=== PATIENT | female | born 1995 | race Caucasian/White ===

== ENCOUNTER 2022-07-30 08:09 | Inpatient (IN) ==
[2022-07-30] MEDS ORDERED: OXYTOCIN 30 UNITS/500 ML BAG IV PRN ×3 (09:29→18:19)
[2022-07-30] MEDS ORDERED: LIDOCAINE 1% LOCAL 20 ML VIAL INFIL PRN (09:29)
--- NOTE | 2022-07-30 09:36 | History & Physical Report ---
Date of Service July 30, 2022 Assessment & Plan (1) 38 weeks gestation of : (2) SROM (spontaneous rupture of membranes): Plan admit, iv, labs. plan pitocin augmentation. fhts categ 1. History of Present Illness Chief Complaint: leaking fluid since 6am clear Primary Care Provider: NO PCP 26yo at 38+wks ega presents to L&D with above cc. Having few contractions not painful. Clear fluid leak since 6am. +FM. PNC uncomplicated. PNL rh pos, ri, gbs neg OBH: g1 GYNH: nl paps, no stds Allergies Allergy/AdvReac Type Severity Reaction Status Date / Time No Known Allergies Allergy Verified 07/30/22 09:04 Home Medications Medication Instructions Recorded Confirmed Type prenat.vits,berto,qvh-lyau-qqyre 1 tab PO DAILY 12/26/21 07/30/22 History Patient History Medical History (Updated 07/30/22 @ 09:35 by Tali Campuzano MD, FACOG) Encounter for IUD insertion Encounter for routine gynecological examination Surgical History No pertinent past surgical history Family History Sister Diabetes Dyslipidemia Aunt Breast cancer Maternal great aunt Denies family history of Ovarian cancer Colorectal cancer Social History Smoking Status: Never smoker Hx Alcohol Use: No Hx Substance Use: No Preferred Language: [place] 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 current occupational status: employed current occupation: self employed. Other Information That Helps Us Care for You: No Feels Safe at Home: Yes Safety Concerns: Feels Safe At This Time Assistive Devices: None Review of Systems as per Subjective / HPI Physical Exam Constitutional: WD/WN, vitals as above Respiratory: normal respiratory effort, lungs clear to auscultation Cardiovascular: Rate/Rhythm: regular rate and regular rhythm Gastrointestinal (Abdomen): soft gravid nt efw 7-8# Musculoskeletal: no edema nontender calves Neurologic: grossly normal Psychiatric: A+Ox3, euthymic affect Genitourinary: OB Exam Abdomen: + vertex Manual OB Exam: + cervical dilation 3 cm, + cervical effacement 90% and + station -2 OB Exam Monitor Tracing: + external FHT monitor used, + external uterine monitor used (q3), + category I and + normal FHT variability Results & Data ([facility]) Vital Signs (Past 12 Hours) Vital Signs Temp Pulse Resp BP 07/30/22 08:38 98.1 F 20 07/30/22 09:07 101 H 07/30/22 09:07 128/83 07/30/22 08:29 116 H 158/89 H Coding Level of Care Code None Diagnoses 38 weeks gestation of Z3A.38 SROM (spontaneous rupture of membranes)
[2022-07-30 10:04] LABS: Hematocrit (blood only) 36.5 % (34.1-44.9); Hemoglobin 12.8 g/dl (12.0-16.0); Mean Corpuscular Hemoglobin 30.5 pg (25.0-34.0); Mean Corpuscular Hgb Conc 35.1 g/dL (32.0-36.0); Mean Corpuscular Volume 87.1 fL (80.0-100.0); Mean Platelet Volume 10.6 fL (9.4-12.3); Platelet Count 209 K/uL (130-400); RDW Coefficient of Variation 13.9 % (11.5-14.5); RDW Standard Deviation 43.6 fL (36.4-46.3); Red Blood Count 4.19 M/uL (3.93-5.22); White Blood Count 14.28 K/ul (4.8-10.8)
[2022-07-30] MEDS: LACTATED RINGER'S 1,000 ML IV PRN ×2 (10:54→12:34)
[2022-07-30] MEDS ORDERED: fentaNYL citrate 100 MCG/2 ML VIAL ONE (11:43)
[2022-07-30] MEDS ORDERED: SODIUM CHLORIDE 0.9% INJ 10 ML VIAL ONE (11:43)
[2022-07-30] MEDS ORDERED: ePHEDrine sulfate 50 MG/ML AMP ONE (11:43)
[2022-07-30] MEDS ORDERED: fentaNYL 2MCG/ML ROPIVACAINE 1.25MG/ML 100 ML BAG EPI ONE (11:44)
[2022-07-30] MEDS ORDERED: BUPIVACAINE 0.25% 30 ML VIAL ONE (11:44)
[2022-07-30] MEDS ORDERED: LIDOCAINE 2%/EPINEPHRINE 1:200,000 20 ML SDV ONE (11:44)
[2022-07-30] MEDS ORDERED: NALBUPHINE HCL INJ 10 MG/ML AMP IV PRN (12:00)
[2022-07-30] MEDS ORDERED: NALOXONE HCL 1 MG in SODIUM CHLORIDE 0.9% 1000ML 1,000 ML IV PRN (12:00)
[2022-07-30] MEDS ORDERED: ONDANSETRON INJ 2 MG/ML 2 ML VIAL IV PRN (12:00)
[2022-07-30] MEDS ORDERED: diphenhydrAMINE 50 MG/ML VIAL IV PRN (12:00)
[2022-07-30] MEDS ORDERED: fentaNYL 2MCG/ML ROPIVACAINE 1.25MG/ML 100 ML BAG EPI PRN (12:00)
[2022-07-30] MEDS ORDERED: NALOXONE HCL 0.4 MG/1 ML VIAL/CARP IV PRN (12:00)
[2022-07-30] MEDS ORDERED: ePHEDrine sulfate 50 MG/ML AMP IV PRN (12:00)
--- NOTE | 2022-07-30 12:00 | Anesthesiology Consultation ---
Date of Service July 30, 2022 Assessment & Plan ASA ASA2 Proposed Anesthesia Anesthesia Type: Labor Epidural Risk / Benefits Reviewed With: PT / POA / Parent / Guardian, Accepts Plan and Informed Consent Obtained History Height/Weight Height: 5 ft 6 in Weight: 81.647 kg Allergies Allergy/AdvReac Type Severity Reaction Status Date / Time No Known Allergies Allergy Verified 07/30/22 09:04 Medications Home Medications Medication Instructions Recorded Confirmed Last Taken prenat.vits,berto,edm-hytb-rqiow 1 tab PO DAILY 12/26/21 07/30/22 07/29/22 08:00 Active Medications Generic Name Dose Route Start Last Admin Trade Name Freq PRN Reason Stop Dose Admin Oxytocin 30 units in 500 mls @ 3 mls/hr 07/30/22 09:29 07/30/22 11:30 Pitocin IV 08/01/22 09:28 0.18 units/hr .Q24H PRN 3 mls/hr Labor Induction/Augmentation Titration Protocol 0.18 UNITS/HR Lactated Ringer's 1,000 mls @ 125 mls/hr 07/30/22 09:29 07/30/22 10:54 Lr IV 08/01/22 09:28 125 mls/hr .Q8H PRN Administration L&D Protocol Protocol Past Medical History Medical History Encounter for IUD insertion Encounter for routine gynecological examination Exercise / Class Metabolic Activity II 4-5 Yardwork/Stairs/Walk up hill Past Family History Family History Sister Diabetes Dyslipidemia Aunt Breast cancer Maternal great aunt Denies family history of Ovarian cancer Colorectal cancer Past Surgical History Surgical History No pertinent past surgical history Past Anesthesia History No Hx of Anesthesia Complications and No Family Hx of Anesthesia Complications History of PONV No Hx of PONV and No Hx of Motion Sickness Social History Smoking Status: Never smoker Hx Alcohol Use: No Hx Substance Use: No Review of Systems denies fever/cough/ colds/ chest pain/ SOB/ DENY denies DENY Physical Exam Vital Signs Last Vital Signs Temp 36.7 C 07/30/22 08:38 Pulse 83 07/30/22 12:20 Resp 20 07/30/22 08:38 BP 102/57 L 07/30/22 12:20 Pulse Ox 100 07/30/22 12:20 ENMT Mouth: no TMJ abnormality and no dentition abnormality Thyromental Distance: > or= 3.5 Finger Breadths Mallampati Class: II Neck neck extension not limited Respiratory normal respiratory effort; no respiratory distress Auscultation: lungs clear to auscultation bilaterally Cardiovascular Rate/Rhythm: regular rate and regular rhythm Neurologic moves all extremities Psychiatric Orientation: alert and oriented x 3 Testing Laboratory Results 07/30/22 09:48
--- NOTE | 2022-07-30 15:19 | Labor Progress Brief Note ---
Date of Service July 30, 2022 Subjective feeling pressure Assessment & Plan (1) 38 weeks gestation of : (2) SROM (spontaneous rupture of membranes): Plan good progress, will drain bladder and begin 2nd stage soon. fhts categ 2, occas variable Admission and Anticipated Discharge Date Admission Date: July 30, 2022 Physical Exam Constitutional: WD/WN, vitals as above Genitourinary: Manual OB Exam: + cervical dilation (small ant lip), + cervical effacement 100% and + station + 1 OB Exam Monitor Tracing: + external FHT monitor used, + external uterine monitor used (q2), + category II (occas variables) and + normal FHT variability Results & Data ([facility]) Vital Signs (Past 12 Hours) Vital Signs Temp Pulse Resp BP Pulse Ox 07/30/22 12:30 98.2 F 20 07/30/22 10:30 97.7 F 20 07/30/22 08:38 98.1 F 20 07/30/22 15:15 98 07/30/22 15:15 118 H 07/30/22 15:12 100 H 07/30/22 15:12 134/70 07/30/22 15:10 100 07/30/22 15:10 106 H 07/30/22 15:05 100 07/30/22 15:05 92 H 07/30/22 15:00 99 07/30/22 15:00 95 H 07/30/22 14:55 100 07/30/22 14:55 97 H 07/30/22 14:50 100 07/30/22 14:50 102 H 07/30/22 14:48 94 07/30/22 14:48 108 H 07/30/22 14:48 108 H 07/30/22 14:48 125/70 07/30/22 14:45 100 07/30/22 14:45 98 H 07/30/22 14:41 90 07/30/22 14:41 95 H 07/30/22 14:40 100 07/30/22 14:40 91 H 07/30/22 14:35 94 07/30/22 14:35 91 H 07/30/22 14:30 100 07/30/22 14:30 92 H 07/30/22 14:28 96 H 07/30/22 14:28 139/83 07/30/22 14:26 93 07/30/22 14:26 99 H 07/30/22 14:25 100 07/30/22 14:25 88 07/30/22 14:20 100 07/30/22 14:20 82 07/30/22 14:15 100 07/30/22 14:15 101 H 07/30/22 14:12 111 H 07/30/22 14:12 125/75 07/30/22 14:10 100 07/30/22 14:10 99 H 07/30/22 14:05 100 07/30/22 14:05 106 H 07/30/22 14:00 95 07/30/22 14:00 92 H 07/30/22 13:58 92 07/30/22 13:58 86 07/30/22 13:58 122/72 07/30/22 13:55 100 07/30/22 13:55 95 H 07/30/22 13:50 100 07/30/22 13:50 100 H 07/30/22 13:44 89 L 07/30/22 13:45 95 07/30/22 13:44 92 H 07/30/22 13:45 87 07/30/22 13:42 95 H 07/30/22 13:42 115/68 07/30/22 13:40 100 07/30/22 13:40 90 07/30/22 13:35 20 07/30/22 13:35 20 07/30/22 12:20 20 07/30/22 12:20 20 07/30/22 12:35 20 07/30/22 12:35 20 07/30/22 12:50 20 07/30/22 12:50 20 07/30/22 13:05 20 07/30/22 13:05 20 07/30/22 13:20 20 07/30/22 13:20 20 07/30/22 13:35 97 07/30/22 13:35 94 H 07/30/22 13:30 98 07/30/22 13:30 90 07/30/22 13:27 93 H 07/30/22 13:27 120/68 07/30/22 13:25 97 07/30/22 13:25 87 07/30/22 13:22 94 07/30/22 13:22 98 H 07/30/22 13:20 97 07/30/22 13:20 91 H 07/30/22 13:15 93 07/30/22 13:15 91 H 07/30/22 13:15 95 07/30/22 13:15 91 H 07/30/22 13:12 88 07/30/22 13:12 126/71 07/30/22 13:10 91 07/30/22 13:10 102 H 07/30/22 13:08 93 07/30/22 13:08 101 H 07/30/22 13:07 94 H 07/30/22 13:07 122/81 07/30/22 13:05 99 07/30/22 13:05 86 07/30/22 13:01 108 H 07/30/22 13:01 121/73 07/30/22 13:00 96 07/30/22 13:00 94 H 07/30/22 12:57 104 H 07/30/22 12:57 118/69 07/30/22 12:55 100 07/30/22 12:55 90 07/30/22 12:52 85 07/30/22 12:52 121/76 07/30/22 12:50 100 07/30/22 12:50 96 H 07/30/22 12:47 89 L 07/30/22 12:47 84 07/30/22 12:46 101 H 07/30/22 12:46 108/63 07/30/22 12:45 99 07/30/22 12:45 98 H 07/30/22 12:41 103 H 07/30/22 12:41 109/64 07/30/22 12:40 99 07/30/22 12:40 100 H 07/30/22 12:36 98 H 07/30/22 12:36 113/70 07/30/22 12:35 100 07/30/22 12:35 87 07/30/22 12:32 96 H 07/30/22 12:32 116/74 07/30/22 12:30 100 07/30/22 12:30 100 H 07/30/22 12:26 80 07/30/22 12:26 101/55 L 07/30/22 12:25 100 07/30/22 12:25 85 07/30/22 12:24 81 07/30/22 12:24 98/54 L 07/30/22 12:22 86 07/30/22 12:22 88/51 L 07/30/22 12:20 100 07/30/22 12:20 83 07/30/22 12:20 102/57 L 07/30/22 12:18 82 07/30/22 12:18 105/58 L 07/30/22 12:16 83 07/30/22 12:16 108/59 L 07/30/22 12:15 98 07/30/22 12:15 77 07/30/22 12:12 94 07/30/22 12:12 83 07/30/22 12:10 76 L 07/30/22 12:10 93 H 07/30/22 12:07 89 L 07/30/22 12:07 91 H 07/30/22 12:05 98 07/30/22 12:05 95 H 07/30/22 11:39 82 07/30/22 11:39 114/71 07/30/22 10:54 90 07/30/22 10:54 114/69 07/30/22 09:07 101 H 07/30/22 09:07 128/83 07/30/22 08:29 116 H 158/89 H Coding Level of Care Code None Diagnoses 38 weeks gestation of Z3A.38 SROM (spontaneous rupture of membranes)
--- NOTE | 2022-07-30 18:02 | Delivery Summary ---
Vaginal Delivery Summary Date of Service July 30, 2022 Vaginal Delivery Summary and 2nd Degree LAC The patient dilated to complete and pushed to deliver a viable male infant Apgars 8 and 9 via over 2nd degree perineal laceration. Mouth and nose bulb suctioned at perineum. Loose nuchal delivered through. Shoulders and body delivered with ease. Infant was vigorous and crying at . Cord clamped at 30 seconds of life and to maternal abdomen where the cord was then doubly clamped and cut. Placenta delivered spontaneously and intact, three-vessel cord. Hemostasis not achieved with dilute pitocin and uterine massage and drainage of the bladder for approximately 150 cc under sterile conditions. Clot from WENDY removed. Cytotec 800mcg placed rectally. Hemostasis improved. Cervix and sulci intact. EBL 300 cc. Mother and baby stable in recovery. [facility] Vaginal Delivery Charge Delivery Type Details: and 2nd Degree LAC
[2022-07-30] MEDS ORDERED: miSOPROStoL 200 MCG TAB ONE (18:05)
[2022-07-30] MEDS ORDERED: miSOPROStoL 200 MCG TAB PR ONE (18:10)
[2022-07-30] MEDS ORDERED: DIPHTHERIA/TETANUS/PERTUSSIS 0.5 ML SYR/VIAL IM ONE (18:19)
[2022-07-30] MEDS ORDERED: BENZOCAINE 20% AER SPR 82.5 GM CAN EXT PRN (18:19)
[2022-07-30] MEDS ORDERED: LACTATED RINGER'S 1,000 ML IV SCH (18:19)
[2022-07-30] MEDS ORDERED: HYDROCORTISONE ACETATE 25 MG SUPP PR PRN (18:19)
[2022-07-30] MEDS ORDERED: oxyCODONE/ACETAMINOPHEN 5mg/325mg TAB PO PRN (18:19)
[2022-07-30] MEDS ORDERED: bisacodyL 10 MG SUPP PR PRN (18:19)
--- NOTE | 2022-07-30 18:49 | Anesthesiology Progress Note ---
Date of Service July 30, 2022 Anesthesia Post Procedure Vital Signs Vital Signs: Temp Pulse Resp BP Pulse Ox 07/30/22 18:30 20 07/30/22 18:15 20 07/30/22 18:00 20 07/30/22 12:30 36.8 C 20 07/30/22 10:30 36.5 C 20 07/30/22 08:38 36.7 C 20 07/30/22 18:46 123/82 07/30/22 18:30 107 H 07/30/22 18:30 121/71 07/30/22 16:35 20 07/30/22 16:35 36.9 C 20 07/30/22 17:05 20 07/30/22 17:05 20 07/30/22 17:35 20 07/30/22 17:35 20 07/30/22 18:15 106 H 07/30/22 18:15 127/86 07/30/22 18:05 107 H 07/30/22 18:05 112/56 L 07/30/22 18:00 103 H 07/30/22 18:00 128/62 07/30/22 17:57 99 H 07/30/22 17:57 141/67 H 07/30/22 17:45 92 07/30/22 17:45 119 H 07/30/22 17:42 108 H 07/30/22 17:42 125/65 07/30/22 17:39 89 L 07/30/22 17:40 81 L 07/30/22 17:39 115 H 07/30/22 17:40 125 H 07/30/22 17:35 96 07/30/22 17:35 111 H 07/30/22 17:33 90 07/30/22 17:33 116 H 07/30/22 17:30 97 07/30/22 17:30 120 H 07/30/22 17:28 118 H 07/30/22 17:28 122/56 L 07/30/22 17:25 99 07/30/22 17:25 118 H 07/30/22 17:23 91 07/30/22 17:23 113 H 07/30/22 17:20 95 07/30/22 17:20 119 H 07/30/22 17:17 92 07/30/22 17:17 111 H 07/30/22 17:15 85 L 07/30/22 17:15 119 H 07/30/22 17:12 121 H 07/30/22 17:12 118/57 L 07/30/22 17:10 97 07/30/22 17:10 135 H 07/30/22 17:05 90 07/30/22 17:05 126 H 07/30/22 16:59 88 L 07/30/22 17:00 99 07/30/22 16:59 121 H 07/30/22 17:00 125 H 07/30/22 16:58 117 H 07/30/22 16:58 123/63 07/30/22 16:55 98 07/30/22 16:55 119 H 07/30/22 16:54 92 07/30/22 16:54 116 H 07/30/22 16:50 98 07/30/22 16:50 121 H 07/30/22 16:49 91 07/30/22 16:49 116 H 07/30/22 16:45 94 07/30/22 16:45 115 H 07/30/22 16:40 98 07/30/22 16:40 118 H 07/30/22 16:35 98 07/30/22 16:35 116 H 07/30/22 16:30 97 07/30/22 16:30 114 H 07/30/22 16:25 100 07/30/22 16:25 125 H 07/30/22 16:20 96 07/30/22 16:20 126 H 07/30/22 16:15 100 07/30/22 16:15 100 H 07/30/22 16:12 100 H 07/30/22 16:12 139/75 07/30/22 16:10 98 07/30/22 16:10 104 H 07/30/22 16:09 93 07/30/22 16:09 111 H 07/30/22 15:35 20 07/30/22 15:35 20 07/30/22 15:50 20 07/30/22 15:50 20 07/30/22 16:05 20 07/30/22 16:05 20 07/30/22 15:20 20 07/30/22 15:20 20 07/30/22 16:05 100 07/30/22 16:05 101 H 07/30/22 16:00 91 07/30/22 16:00 102 H 07/30/22 15:57 95 H 07/30/22 15:57 139/74 07/30/22 15:55 99 07/30/22 15:55 114 H 07/30/22 15:52 93 07/30/22 15:52 116 H 07/30/22 15:50 99 07/30/22 15:50 107 H 07/30/22 15:45 97 07/30/22 15:45 100 H 07/30/22 15:05 20 07/30/22 15:05 20 07/30/22 14:35 20 07/30/22 14:35 20 07/30/22 14:50 20 07/30/22 14:50 20 07/30/22 14:21 16 07/30/22 14:21 16 07/30/22 15:42 96 H 07/30/22 15:42 134/74 07/30/22 13:50 20 07/30/22 13:50 20 07/30/22 14:05 20 07/30/22 14:05 36.8 C 20 07/30/22 15:40 93 07/30/22 15:40 105 H 07/30/22 15:35 99 07/30/22 15:35 107 H 07/30/22 15:30 98 07/30/22 15:30 113 H 07/30/22 15:27 107 H 07/30/22 15:27 130/72 07/30/22 15:25 100 07/30/22 15:25 115 H 07/30/22 15:20 98 07/30/22 15:20 104 H 07/30/22 15:15 98 07/30/22 15:15 118 H 07/30/22 15:12 100 H 07/30/22 15:12 134/70 07/30/22 15:10 100 07/30/22 15:10 106 H 07/30/22 15:05 100 07/30/22 15:05 92 H 07/30/22 15:00 99 07/30/22 15:00 95 H 07/30/22 14:55 100 07/30/22 14:55 97 H 07/30/22 14:50 100 07/30/22 14:50 102 H 07/30/22 14:48 94 07/30/22 14:48 108 H 07/30/22 14:48 108 H 07/30/22 14:48 125/70 07/30/22 14:45 100 07/30/22 14:45 98 H 07/30/22 14:41 90 07/30/22 14:41 95 H 07/30/22 14:40 100 07/30/22 14:40 91 H 07/30/22 14:35 94 07/30/22 14:35 91 H 07/30/22 14:30 100 07/30/22 14:30 92 H 07/30/22 14:28 96 H 07/30/22 14:28 139/83 07/30/22 14:26 93 07/30/22 14:26 99 H 07/30/22 14:25 100 07/30/22 14:25 88 07/30/22 14:20 100 07/30/22 14:20 82 07/30/22 14:15 100 07/30/22 14:15 101 H 07/30/22 14:12 111 H 07/30/22 14:12 125/75 07/30/22 14:10 100 07/30/22 14:10 99 H 07/30/22 14:05 100 07/30/22 14:05 106 H 07/30/22 14:00 95 07/30/22 14:00 92 H 07/30/22 13:58 92 07/30/22 13:58 86 07/30/22 13:58 122/72 07/30/22 13:55 100 07/30/22 13:55 95 H 07/30/22 13:50 100 07/30/22 13:50 100 H 07/30/22 13:44 89 L 07/30/22 13:45 95 07/30/22 13:44 92 H 07/30/22 13:45 87 07/30/22 13:42 95 H 07/30/22 13:42 115/68 07/30/22 13:40 100 07/30/22 13:40 90 07/30/22 13:35 20 07/30/22 13:35 20 07/30/22 12:20 20 07/30/22 12:20 20 07/30/22 12:35 20 12/05/22 12:35 20 07/30/22 12:50 20 07/30/22 12:50 20 07/30/22 13:05 20 07/30/22 13:05 20 07/30/22 13:20 20 07/30/22 13:20 20 07/30/22 13:35 97 07/30/22 13:35 94 H 07/30/22 13:30 98 07/30/22 13:30 90 07/30/22 13:27 93 H 07/30/22 13:27 120/68 07/30/22 13:25 97 07/30/22 13:25 87 07/30/22 13:22 94 07/30/22 13:22 98 H 07/30/22 13:20 97 07/30/22 13:20 91 H 07/30/22 13:15 93 07/30/22 13:15 91 H 07/30/22 13:15 95 07/30/22 13:15 91 H 07/30/22 13:12 88 07/30/22 13:12 126/71 07/30/22 13:10 91 07/30/22 13:10 102 H 07/30/22 13:08 93 07/30/22 13:08 101 H 07/30/22 13:07 94 H 07/30/22 13:07 122/81 07/30/22 13:05 99 07/30/22 13:05 86 07/30/22 13:01 108 H 07/30/22 13:01 121/73 07/30/22 13:00 96 07/30/22 13:00 94 H 07/30/22 12:57 104 H 07/30/22 12:57 118/69 07/30/22 12:55 100 07/30/22 12:55 90 07/30/22 12:52 85 07/30/22 12:52 121/76 07/30/22 12:50 100 07/30/22 12:50 96 H 07/30/22 12:47 89 L 07/30/22 12:47 84 07/30/22 12:46 101 H 07/30/22 12:46 108/63 07/30/22 12:45 99 07/30/22 12:45 98 H 07/30/22 12:41 103 H 07/30/22 12:41 109/64 07/30/22 12:40 99 07/30/22 12:40 100 H 07/30/22 12:36 98 H 07/30/22 12:36 113/70 07/30/22 12:35 100 07/30/22 12:35 87 07/30/22 12:32 96 H 07/30/22 12:32 116/74 07/30/22 12:30 100 07/30/22 12:30 100 H 07/30/22 12:26 80 07/30/22 12:26 101/55 L 07/30/22 12:25 100 07/30/22 12:25 85 07/30/22 12:24 81 07/30/22 12:24 98/54 L 07/30/22 12:22 86 07/30/22 12:22 88/51 L 07/30/22 12:20 100 07/30/22 12:20 83 07/30/22 12:20 102/57 L 07/30/22 12:18 82 07/30/22 12:18 105/58 L 07/30/22 12:16 83 07/30/22 12:16 108/59 L 07/30/22 12:15 98 07/30/22 12:15 77 07/30/22 12:12 94 07/30/22 12:12 83 07/30/22 12:10 76 L 07/30/22 12:10 93 H 07/30/22 12:07 89 L 07/30/22 12:07 91 H 07/30/22 12:05 98 07/30/22 12:05 95 H 07/30/22 11:39 82 07/30/22 11:39 114/71 07/30/22 10:54 90 07/30/22 10:54 114/69 07/30/22 09:07 101 H 07/30/22 09:07 128/83 07/30/22 08:29 116 H 158/89 H Pain Intensity Bilateral Abdomen: Pain Intensity: 5 Transfer of Care Handoff Completed per policy Notes Mental Status: alert / awake / arousable and participated in evaluation Patient Amnestic to Procedure: Yes Nausea / Vomiting: adequately controlled Pain: adequately controlled Airway Patency, RR, SpO2: stable & adequate BP & HR: stable & adequate Hydration State: stable & adequate Anesthetic Complications: no major complications apparent and Pt Satisfied with anesthetic care
[2022-07-30] MEDS: IBUPROFEN 600 MG TAB PO PRN (20:10)
[2022-07-30] MEDS: DOCUSATE SODIUM 100 MG CAP PO SCH (20:11)
[2022-07-31] MEDS: ACETAMINOPHEN 325 MG TAB PO PRN ×2 (00:50→20:19)
[2022-07-31] MEDS: IBUPROFEN 600 MG TAB PO PRN ×2 (04:25→08:00)
--- NOTE | 2022-07-31 07:14 | Obstetrical Progress Note ---
Date of Service <Adrián Gallego DO - Last Filed: 07/31/22 07:15> July 31, 2022 Assessment & Plan <Adrián Gallego DO - Last Filed: 07/31/22 07:15> (1) Vaginal delivery: - Feels well today. Eating well, voiding well, ambulating well. - Pain well controlled with ibuprofen 600mg Q4H PRN - Routine care -- OOB, ambulation, diet progression as tolerated - After discharge will have 6 week follow-up with Dr. Campuzano. Day #:: 1 <Tali Campuzano MD, FACOG - Last Filed: 07/31/22 07:50> (1) Vaginal delivery: Subjective <Adrián Gallego DO - Last Filed: 07/31/22 07:15> Ambulation: ambulating normally Voiding: no voiding problems Passing Gas:: Yes Diet Tolerance:: regular diet Lochia:: Small Feeding Type:: breast feeding Current Pain Level(1-10): 1 Doing well. Lochia improving. States that it was moderate yesterday and overnight but is improving to mild now. Review of Systems Denies fever, chills, sweats Denies shortness of breath, difficulty breathing, chest pain, palpitations, chest pressure. Denies breast pain. Denies dysuria. Denies headache or changes in vision. Physical Exam <Adrián Gallego DO - Last Filed: 07/31/22 07:15> General: Alert, oriented. No acute distress. Cardiac: Regular rate and rhythm, no murmurs/rubs/gallops. Respiratory: Clear to auscultation bilaterally a/p, no wheezes/rales/rhonchi. No increased work of breathing. Symmetrical chest rise. No respiratory distress. Abdomen: Soft, nontender, nondistended. Bowel sounds present. Uterus: Uterine fundus firm, palpable 2 cm below umbilicus. Lower Extremities: No lower extremity edema or swelling. No deep calf pain. Tod's negative bilaterally. Results & Data ([facility]) <Adrián Gallego DO - Last Filed: 07/31/22 07:15> Vital Signs (Past 12 Hours) Vital Signs Temp Pulse Pulse Resp BP BP Pulse Ox 07/31/22 04:30 36.6 C 80 18 119/77 97 07/31/22 00:30 37.6 C H 90 18 120/76 97 07/30/22 20:05 36.4 C L 97 H 18 129/73 97 07/30/22 19:50 18 07/30/22 19:40 99 H 07/30/22 19:40 130/70 07/30/22 19:30 91 H 07/30/22 19:30 153/70 H 07/30/22 19:15 100 H 07/30/22 19:15 147/78 H O2 Del Method 07/31/22 04:30 Room Air 07/31/22 00:30 Room Air 07/30/22 20:05 Room Air 07/30/22 19:50 07/30/22 19:40 07/30/22 19:40 07/30/22 19:30 07/30/22 19:30 07/30/22 19:15 07/30/22 19:15 <Tali Campuzano MD, FACOG - Last Filed: 07/31/22 07:50> Co-Signing Physician Notes Resident Physician Supervision Note: I interviewed and examined the patient. Discussed with Dr. Gallego and agree with findings and plan as documented in the note. Any exceptions or clarifications are listed here: pt seen and examined by me, doing well, eating, voiding, ambulating. bleeding decreasing. breast feeding. vss. cor rrr, lungs ctab, abd soft ff 2 down nt. ext nt calves. ppd#1 s/p . routine care. rh pos, ri, gbs neg. Documented By: Tali Campuzano MD, FACOG Resident Activity Tracking <Adrián Gallego DO - Last Filed: 07/31/22 07:15> Resident Involvement: Resident Care Provided Care Provided: OB Delivery
[2022-07-31] MEDS: DOCUSATE SODIUM 100 MG CAP PO SCH ×2 (08:00→20:19)
[2022-07-31] MEDS: PRENATAL VITAMIN 1 TAB PO SCH (08:00)
[2022-07-31] MEDS ORDERED: ' PO SCH (09:00)
[2022-07-31 10:17] LABS: Hematocrit (blood only) 31.3 % (34.1-44.9); Hemoglobin 10.9 g/dl (12.0-16.0); Mean Corpuscular Hemoglobin 30.9 pg (25.0-34.0); Mean Corpuscular Hgb Conc 34.8 g/dL (32.0-36.0); Mean Corpuscular Volume 88.7 fL (80.0-100.0); Mean Platelet Volume 10.7 fL (9.4-12.3); Platelet Count 184 K/uL (130-400); RDW Coefficient of Variation 14.1 % (11.5-14.5); RDW Standard Deviation 44.8 fL (36.4-46.3); Red Blood Count 3.53 M/uL (3.93-5.22); White Blood Count 16.28 K/ul (4.8-10.8)
[2022-07-31] MEDS ORDERED: bisacodyL 5 MG TABEC PO SCH (20:00)
--- NOTE | 2022-08-01 06:58 | Obstetrical Progress Note ---
Date of Service <Adrián Gallego DO - Last Filed: 08/01/22 06:58> August 01, 2022 Assessment & Plan <Adrián Gallego DO - Last Filed: 08/01/22 06:58> (1) Vaginal delivery: - Feels well today. Eating well, voiding well, ambulating well. - Pain well controlled with [ibuprofen 600mg Q4H PRN] - Routine care -- OOB, ambulation, diet progression as tolerated - After discharge will have 6 week follow-up with Dr. Campuzano - Will D/C today. Day #:: 2 <Ruthann Overton MD - Last Filed: 08/01/22 07:10> (1) Vaginal delivery: Subjective <Adrián Gallego DO - Last Filed: 08/01/22 06:58> Ambulation: ambulating normally Voiding: no voiding problems Passing Gas:: Yes Diet Tolerance:: regular diet Lochia:: Small Feeding Type:: breast feeding Current Pain Level(1-10): 5 Review of Systems Denies fever, chills, sweats Denies shortness of breath, difficulty breathing, chest pain, palpitations, chest pressure. Denies breast pain. Denies dysuria. Denies headache or changes in vision. Physical Exam <Adrián Gallego DO - Last Filed: 08/01/22 06:58> General: Alert, oriented. No acute distress. Cardiac: Regular rate and rhythm, no murmurs/rubs/gallops. Respiratory: Clear to auscultation bilaterally a/p, no wheezes/rales/rhonchi. No increased work of breathing. Symmetrical chest rise. No respiratory distress. Abdomen: Soft, nontender, nondistended. Bowel sounds present. Uterus: Uterine fundus firm, palpable 2 cm below umbilicus. Lower Extremities: No lower extremity edema or swelling. No deep calf pain. Tod's negative bilaterally. Results & Data ([facility]) <Adrián Gallego DO - Last Filed: 08/01/22 06:58> Vital Signs (Past 12 Hours) Vital Signs Temp Pulse Resp BP Pulse Ox O2 Del Method 07/31/22 23:20 36.3 C L 74 16 114/73 96 07/31/22 20:30 36.4 C L 69 14 103/64 97 Room Air <Ruthann Overton MD - Last Filed: 08/01/22 07:10> Co-Signing Physician Notes Resident Physician Supervision Note: I interviewed and examined the patient. Discussed with Dr. Gallego and agree with findings and plan as documented in the note. Any exceptions or clarifications are listed here: [ ] Documented By: Ruthann Overton MD, FACOG Resident Activity Tracking <Adrián Gallego DO - Last Filed: 08/01/22 06:58> Resident Involvement: Resident Care Provided Care Provided: OB Delivery
[2022-08-01 08:05] VITALS: BP 124/85; PULSE 79; TEMP 97.7; O2SAT 98
[2022-08-01] MEDS: PRENATAL VITAMIN 1 TAB PO SCH (08:34)
[2022-08-01] MEDS: IBUPROFEN 600 MG TAB PO PRN (08:34)
[2022-08-01] MEDS: DOCUSATE SODIUM 100 MG CAP PO SCH (08:34)
== END 2022-08-01 13:11 | disposition home or self-care (01) | DRG 807 ==
LOC: OPB 08:09 → 4S1 08:11 → 4E2 20:11